=== PATIENT | male | born 1940 | race Caucasian/White ===

== ENCOUNTER → 2018-02-28 | Emergency (ER) | payer OTHER ==
[~2018-02-28] VITALS: Ht 177.8 cm; Wt 72.6 kg
[~2018-02-28] MED LIST: CATAFLAM50 MG PO; CLONAZEPAM0.5 MG PO; IOPHEN DM-100 MG/5 M PO; LEVAQUIN750 MG PO; MEDROL4 MG PO; MEDROLPACK PO; ORPH100T PO; SYMBICORT 16010.2 GM IH; TESSALON PERLE100 M1 PO; TUSSI PRES-B L120 M1 PO; TUSSIONEX PENN115 ML PO; VENTOLIN HFA18 GM; ZITHROMAX TRI-500 MG PO
== END | disposition home or self-care (01) ==
LOC: ER 05:24
DX: J44.9 Chronic obstructive pulmonary disease, unspecified (principal); J20.9 Acute bronchitis, unspecified; J11.1 Influenza due to unidentified influenza virus with other respiratory manifestations

== ENCOUNTER 2018-03-12 05:24 | Emergency (ER) | payer OTHER ==
[~2018-03-12] VITALS: Ht 180.3 cm; Wt 72.6 kg
[~2018-03-12 05:24] MED LIST changes: -TUSSI PRES-B L120 M1 PO; -TUSSIONEX PENN115 ML PO; -VENTOLIN HFA18 GM; -ZITHROMAX TRI-500 MG PO
[2018-03-12] MEDS ORDERED: VENTOLIN HFA18 GM (05:37)
[2018-03-12] MEDS ORDERED: TUSSI PRES-B L120 M1 PO (11:25)
[2018-03-12] MEDS ORDERED: ZITHROMAX TRI-500 MG PO (11:25)
[2018-03-12] MEDS ORDERED: TESSALON PERLE100 M1 PO (11:25)
== END 2018-03-12 11:41 | disposition home or self-care (01) ==
LOC: ER 05:24
DX: J44.1 Chronic obstructive pulmonary disease with (acute) exacerbation (principal); J11.1 Influenza due to unidentified influenza virus with other respiratory manifestations

== ENCOUNTER 2018-03-17 05:08 | Emergency (ER) | payer OTHER ==
[~2018-03-17] VITALS: Ht 175.3 cm; Wt 69.9 kg
[~2018-03-17 05:08] MED LIST changes: +TUSSI PRES-B L120 M1 PO; +VENTOLIN HFA18 GM; +ZITHROMAX TRI-500 MG PO
[2018-03-18] MEDS ORDERED: TUSSIONEX PENN115 ML PO (07:54)
== END 2018-03-18 08:04 | disposition home or self-care (01) ==
LOC: ER 05:08
DX: J44.1 Chronic obstructive pulmonary disease with (acute) exacerbation (principal); J41.0 Simple chronic bronchitis

== ENCOUNTER 2018-04-24 09:02 | Inpatient (IN) | payer OTHER ==
[~2018-04-24] VITALS: Ht 180.3 cm; Wt 61.7 kg
[~2018-04-24 09:02] MED LIST changes: +TUSSIONEX PENN115 ML PO
== END 2018-04-28 19:48 | disposition home or self-care (01) | DRG 191 ==
LOC: ER 09:02 → MEDI 21:18 → SEC-K 21:18 → MEDI 21:50
PROC: 4A033R1 Measurement of Arterial Saturation, Peripheral, Percutaneous Approach (ICD-10-PCS; principal; 2018-04-24)
PROC: 3E0F7GC Introduction of Other Therapeutic Substance into Respiratory Tract, Via Natural or Artificial Opening (ICD-10-PCS; 2018-04-24)
PROC: B246ZZZ Ultrasonography of Right and Left Heart (ICD-10-PCS; 2018-04-25)
PROC: 4A12X4Z Monitoring of Cardiac Electrical Activity, External Approach (ICD-10-PCS; 2018-04-25)
DX: J44.1 Chronic obstructive pulmonary disease with (acute) exacerbation (principal); E87.2 Acidosis; I47.2 Ventricular tachycardia; J20.9 Acute bronchitis, unspecified; J44.0 Chronic obstructive pulmonary disease with (acute) lower respiratory infection; R09.02 Hypoxemia; E05.80 Other thyrotoxicosis without thyrotoxic crisis or storm

== ENCOUNTER 2018-04-29 23:46 | Emergency (ER) | payer OTHER ==
[~2018-04-29] VITALS: Ht 180.3 cm; Wt 72.6 kg
== END 2018-04-30 19:38 | disposition home or self-care (01) ==
LOC: ER 23:46
DX: R55 Syncope and collapse (principal); R42 Dizziness and giddiness; R61 Generalized hyperhidrosis; R39.198 Other difficulties with micturition; J44.9 Chronic obstructive pulmonary disease, unspecified

== ENCOUNTER 2018-06-20 23:50 | Emergency (ER) | payer OTHER ==
[~2018-06-20] VITALS: Ht 180.3 cm; Wt 70.3 kg
== END 2018-06-21 03:27 | disposition home or self-care (01) ==
LOC: ER 23:50
DX: R06.02 Shortness of breath (principal); F41.8 Other specified anxiety disorders

== ENCOUNTER 2018-06-27 06:24 | Emergency (ER) | payer OTHER ==
[~2018-06-27] VITALS: Ht 175.3 cm; Wt 71.7 kg
== END 2018-06-27 12:01 | disposition home or self-care (01) ==
LOC: ER 06:24
DX: J44.9 Chronic obstructive pulmonary disease, unspecified (principal); J45.998 Other asthma

== ENCOUNTER 2018-07-03 00:28 | Emergency (ER) | payer OTHER ==
[~2018-07-03] VITALS: Ht 172.7 cm; Wt 72.6 kg
== END 2018-07-03 14:22 | disposition home or self-care (01) ==
LOC: ER 00:28
DX: J45.998 Other asthma (principal); J41.0 Simple chronic bronchitis; J11.1 Influenza due to unidentified influenza virus with other respiratory manifestations

== ENCOUNTER 2018-07-30 01:32 | Inpatient (IN) | payer OTHER ==
[~2018-07-30] VITALS: Ht 180.3 cm; Wt 72.6 kg
== END 2018-08-02 16:34 | disposition home or self-care (01) | DRG 202 ==
LOC: ER 01:32 → MEDI 12:51
PROC: 3E0F7GC Introduction of Other Therapeutic Substance into Respiratory Tract, Via Natural or Artificial Opening (ICD-10-PCS; principal; 2018-07-30)
PROC: 4A033R1 Measurement of Arterial Saturation, Peripheral, Percutaneous Approach (ICD-10-PCS; 2018-07-30)
DX: J45.41 Moderate persistent asthma with (acute) exacerbation (principal); J44.1 Chronic obstructive pulmonary disease with (acute) exacerbation; E87.2 Acidosis; R09.02 Hypoxemia

== ENCOUNTER → 2018-08-29 | Emergency (ER) | payer OTHER ==
[~2018-08-29] VITALS: Ht 180.3 cm; Wt 72.6 kg
[~2018-08-29] MED LIST changes: +ANORO ELLIPTA1 EACH IH; +DALIRESP500 MCG PO
== END | disposition home or self-care (01) ==
LOC: ER 17:10 → CPU-OBS 17:29
DX: R07.89 Other chest pain (principal); J44.9 Chronic obstructive pulmonary disease, unspecified; E87.5 Hyperkalemia

== ENCOUNTER 2018-09-27 16:27 | Inpatient (IN) | payer OTHER ==
[~2018-09-27] VITALS: Ht 177.8 cm; Wt 72.6 kg
[2018-09-27] MEDS ORDERED: PAROXETINE HCL20 MG (16:49)
[2018-09-27] MEDS ORDERED: FLUOXETINE HCL10 M1 (16:50)
[2018-09-27] MEDS ORDERED: CLONAZEPAM1 MG (16:50)
[2018-09-27] MEDS ORDERED: TRAZODONE HCL50 MG (16:50)
== END 2018-10-09 19:08 | disposition home or self-care (01) | DRG 207 ==
LOC: ER 16:27 → ICU-2 21:24 → ICU 21:24 → ICU-2 09-28 03:30 → ICU 09-28 03:46 → MEDI 10-07 19:32
PROVIDERS: ADMIT Specialist
PROC: 0BH17EZ Insertion of Endotracheal Airway into Trachea, Via Natural or Artificial Opening (ICD-10-PCS; 2018-09-27)
PROC: 5A1955Z Respiratory Ventilation, Greater than 96 Consecutive Hours (ICD-10-PCS; 2018-09-27)
PROC: 3E0F7GC Introduction of Other Therapeutic Substance into Respiratory Tract, Via Natural or Artificial Opening (ICD-10-PCS; 2018-09-27)
PROC: 4A033R1 Measurement of Arterial Saturation, Peripheral, Percutaneous Approach (ICD-10-PCS; 2018-09-27)
PROC: 4A12X4Z Monitoring of Cardiac Electrical Activity, External Approach (ICD-10-PCS; 2018-09-27)
PROC: 30233N1 Transfusion of Nonautologous Red Blood Cells into Peripheral Vein, Percutaneous Approach (ICD-10-PCS; 2018-09-30)
PROC: 0DJ08ZZ Inspection of Upper Intestinal Tract, Via Natural or Artificial Opening Endoscopic (ICD-10-PCS; principal; 2018-10-03)
DX: J44.1 Chronic obstructive pulmonary disease with (acute) exacerbation (principal); J96.01 Acute respiratory failure with hypoxia; K25.4 Chronic or unspecified gastric ulcer with hemorrhage; B37.1 Pulmonary candidiasis; E87.2 Acidosis; D50.0 Iron deficiency anemia secondary to blood loss (chronic); E87.5 Hyperkalemia; B96.89 Other specified bacterial agents as the cause of diseases classified elsewhere; B96.5 Pseudomonas (aeruginosa) (mallei) (pseudomallei) as the cause of diseases classified elsewhere

== ENCOUNTER 2018-11-23 06:05 | Emergency (ER) | payer OTHER ==
[~2018-11-23] VITALS: Ht 180.3 cm; Wt 66.2 kg
[~2018-11-23 06:05] MED LIST changes: +CLONAZEPAM1 MG; +FLUOXETINE HCL10 M1; +PAROXETINE HCL20 MG; +TRAZODONE HCL50 MG
== END 2018-11-23 15:11 | disposition home or self-care (01) ==
LOC: ER 06:05
DX: J44.1 Chronic obstructive pulmonary disease with (acute) exacerbation (principal); J11.1 Influenza due to unidentified influenza virus with other respiratory manifestations

== ENCOUNTER 2018-11-29 23:20 | Inpatient (IN) | payer OTHER ==
[~2018-11-29] VITALS: Ht 180.3 cm; Wt 65.8 kg
[2018-11-29] MEDS ORDERED: ALBUTEROL S2 MG/5 ML (23:53)
== END 2018-12-04 16:18 | disposition home or self-care (01) | DRG 190 ==
LOC: ER 23:20 → MEDI 11-30 12:40 → SEC-K 11-30 12:40 → MEDI 11-30 15:48
PROVIDERS: ADMIT Specialist
PROC: 3E0F7GC Introduction of Other Therapeutic Substance into Respiratory Tract, Via Natural or Artificial Opening (ICD-10-PCS; principal; 2018-11-30)
PROC: 4A12X4Z Monitoring of Cardiac Electrical Activity, External Approach (ICD-10-PCS; 2018-11-30)
PROC: 4A033R1 Measurement of Arterial Saturation, Peripheral, Percutaneous Approach (ICD-10-PCS; 2018-11-30)
PROC: 5A09457 Assistance with Respiratory Ventilation, 24-96 Consecutive Hours, Continuous Positive Airway Pressure (ICD-10-PCS; 2018-11-30)
DX: J44.1 Chronic obstructive pulmonary disease with (acute) exacerbation (principal); J96.01 Acute respiratory failure with hypoxia; B37.1 Pulmonary candidiasis; E87.2 Acidosis; J20.9 Acute bronchitis, unspecified; F41.8 Other specified anxiety disorders; F17.290 Nicotine dependence, other tobacco product, uncomplicated; Z99.81 Dependence on supplemental oxygen; M15.0 Primary generalized (osteo)arthritis; F32.89 Other specified depressive episodes; B96.5 Pseudomonas (aeruginosa) (mallei) (pseudomallei) as the cause of diseases classified elsewhere; B96.89 Other specified bacterial agents as the cause of diseases classified elsewhere

== ENCOUNTER 2018-12-19 02:43 | Emergency (ER) | payer OTHER ==
[~2018-12-19] VITALS: Ht 180.3 cm; Wt 65.8 kg
[~2018-12-19 02:43] MED LIST changes: +ALBUTEROL S2 MG/5 ML
== END 2018-12-19 06:41 | disposition home or self-care (01) ==
LOC: ER 02:43
DX: J44.1 Chronic obstructive pulmonary disease with (acute) exacerbation (principal)

== ENCOUNTER 2018-12-25 14:51 | Emergency (ER) | payer OTHER ==
[~2018-12-25] VITALS: Ht 167.6 cm; Wt 65.8 kg
[2018-12-25] MEDS ORDERED: VENTOLIN HFA18 GM (15:10)
[2018-12-25] MEDS ORDERED: ATROVENT HFA12.9 GM (15:10)
== END 2018-12-26 17:42 | disposition home or self-care (01) ==
LOC: ER 14:51
DX: J44.1 Chronic obstructive pulmonary disease with (acute) exacerbation (principal)

== ENCOUNTER 2019-01-13 19:14 | Inpatient (IN) | payer OTHER ==
[~2019-01-13] VITALS: Ht 177.8 cm; Wt 34.9 kg
[~2019-01-13 19:14] MED LIST changes: +ATROVENT HFA12.9 GM
== END 2019-01-19 14:47 | disposition designated cancer center or children's hospital (05) | DRG 280 ==
LOC: ER 19:14 → MEDJ 01-14 08:13
PROVIDERS: ADMIT Specialist
PROC: 5A09457 Assistance with Respiratory Ventilation, 24-96 Consecutive Hours, Continuous Positive Airway Pressure (ICD-10-PCS; principal; 2019-01-14)
PROC: 3E0F7GC Introduction of Other Therapeutic Substance into Respiratory Tract, Via Natural or Artificial Opening (ICD-10-PCS; 2019-01-14)
PROC: 4A033R1 Measurement of Arterial Saturation, Peripheral, Percutaneous Approach (ICD-10-PCS; 2019-01-14)
PROC: 4A12X4Z Monitoring of Cardiac Electrical Activity, External Approach (ICD-10-PCS; 2019-01-14)
PROC: B246ZZZ Ultrasonography of Right and Left Heart (ICD-10-PCS; 2019-01-15)
DX: I21.4 Non-ST elevation (NSTEMI) myocardial infarction (principal); J96.01 Acute respiratory failure with hypoxia; J44.1 Chronic obstructive pulmonary disease with (acute) exacerbation; E87.2 Acidosis; J44.0 Chronic obstructive pulmonary disease with (acute) lower respiratory infection; M15.0 Primary generalized (osteo)arthritis; J20.9 Acute bronchitis, unspecified; F32.89 Other specified depressive episodes; F41.8 Other specified anxiety disorders; Z99.81 Dependence on supplemental oxygen; Z91.14 Patient's other noncompliance with medication regimen; Z87.891 Personal history of nicotine dependence

== ENCOUNTER 2019-02-25 22:37 | Inpatient (IN) | payer OTHER ==
[~2019-02-25] VITALS: Ht 180.3 cm; Wt 68.0 kg
[2019-02-26] MEDS ORDERED: FAMOTIDINE20 MG PO (09:55)
[2019-02-26] MEDS ORDERED: ATORVASTATIN CA40 MG PO (09:56)
[2019-02-26] MEDS ORDERED: SIMVASTATIN20 MG PO (09:57)
[2019-02-26] MEDS ORDERED: CLONAZEPAM0.5 MG PO (09:57)
== END 2019-03-05 11:43 | disposition home or self-care (01) | DRG 208 ==
LOC: ER 22:37 → MEDJ 02-26 06:23 → SEC-K 02-26 06:23 → MEDJ 02-26 08:01 → MEDI 02-26 08:01 → MEDJ 02-26 10:39
PROVIDERS: ADMIT Internal Medicine Cardiovascular Disease
PROC: 4A033R1 Measurement of Arterial Saturation, Peripheral, Percutaneous Approach (ICD-10-PCS; principal; 2019-02-26)
PROC: 3E0F7GC Introduction of Other Therapeutic Substance into Respiratory Tract, Via Natural or Artificial Opening (ICD-10-PCS; 2019-02-26)
PROC: 5A1935Z Respiratory Ventilation, Less than 24 Consecutive Hours (ICD-10-PCS; 2019-02-27)
PROC: 0BH17EZ Insertion of Endotracheal Airway into Trachea, Via Natural or Artificial Opening (ICD-10-PCS; 2019-02-27)
DX: J44.1 Chronic obstructive pulmonary disease with (acute) exacerbation (principal); I21.4 Non-ST elevation (NSTEMI) myocardial infarction; J96.01 Acute respiratory failure with hypoxia; K27.4 Chronic or unspecified peptic ulcer, site unspecified, with hemorrhage; E87.2 Acidosis; D62 Acute posthemorrhagic anemia; F32.2 Major depressive disorder, single episode, severe without psychotic features; I47.2 Ventricular tachycardia; Z99.11 Dependence on respirator [ventilator] status; E87.5 Hyperkalemia; J20.9 Acute bronchitis, unspecified; J44.0 Chronic obstructive pulmonary disease with (acute) lower respiratory infection; F41.8 Other specified anxiety disorders; R61 Generalized hyperhidrosis; G47.34 Idiopathic sleep related nonobstructive alveolar hypoventilation; B96.89 Other specified bacterial agents as the cause of diseases classified elsewhere

== ENCOUNTER 2019-04-11 22:50 | Emergency (ER) | payer OTHER ==
[~2019-04-11] VITALS: Ht 180.3 cm; Wt 72.6 kg
[~2019-04-11 22:50] MED LIST changes: +ATORVASTATIN CA40 MG PO; +FAMOTIDINE20 MG PO; +SIMVASTATIN20 MG PO
[2019-04-11] MEDS ORDERED: TAMS0.4C (23:11)
[2019-04-11] MEDS ORDERED: XOPENEX0.63 MG/3 (23:12)
== END 2019-04-12 07:58 | disposition home or self-care (01) ==
LOC: ER 22:50
DX: J44.9 Chronic obstructive pulmonary disease, unspecified (principal)

== ENCOUNTER 2019-04-18 01:50 | Emergency (ER) | payer OTHER ==
[~2019-04-18] VITALS: Ht 175.3 cm; Wt 65.8 kg
[~2019-04-18 01:50] MED LIST changes: +TAMS0.4C; +XOPENEX0.63 MG/3
[2019-04-18] MEDS ORDERED: MEDROLPACK PO (08:26)
[2019-04-18] MEDS ORDERED: TESSALON PERLE100 M1 PO (08:26)
== END 2019-04-18 09:51 ==
LOC: ER 01:50
DX: J44.1 Chronic obstructive pulmonary disease with (acute) exacerbation (principal)

== ENCOUNTER 2019-04-18 16:43 | Inpatient (IN) | payer OTHER ==
[~2019-04-18] VITALS: Ht 180.3 cm; Wt 68.0 kg
--- NOTE | 2019-04-18 17:28 | NUR ---
SE RECIBE PTE DESDE AMBULANCIA,PTE MASCULINO DE 78 YRS,PTE ALERTA X 3, CON DIFICULTDAD AL RESPIRAR, SE ACOMODA EN AMAYA CPU # 17 Y SE CONECTA A MONITOR CARDIACO,DR MCHUGH EVALUA Y ORDENA IVF'S CON MEDICAMENTOS, BPAP Y TERAPIA RESPIRATORIA.
--- NOTE | 2019-04-18 17:41 | NUR ---
DR MCHUGH ORDENA PARAMETROS DE BPAP: EPAP:14, IPAP:5,RR:14 O2:100%
--- NOTE | 2019-04-18 18:01 | NUR ---
SE LE REPITE CMP YA QUE LABORATORIO NOTIFICO MUESTRA HEMOLIZADA.
== END 2019-04-24 13:17 | disposition home or self-care (01) | DRG 208 ==
LOC: ER 16:43 → SURH 20:20
PROVIDERS: ADMIT Internal Medicine Cardiovascular Disease
PROC: 0BH17EZ Insertion of Endotracheal Airway into Trachea, Via Natural or Artificial Opening (ICD-10-PCS; principal; 2019-04-18)
PROC: 5A1945Z Respiratory Ventilation, 24-96 Consecutive Hours (ICD-10-PCS; 2019-04-18)
PROC: 4A033R1 Measurement of Arterial Saturation, Peripheral, Percutaneous Approach (ICD-10-PCS; 2019-04-18)
PROC: 3E0F7GC Introduction of Other Therapeutic Substance into Respiratory Tract, Via Natural or Artificial Opening (ICD-10-PCS; 2019-04-18)
PROC: 4A12X4Z Monitoring of Cardiac Electrical Activity, External Approach (ICD-10-PCS; 2019-04-18)
DX: J96.01 Acute respiratory failure with hypoxia (principal); I21.4 Non-ST elevation (NSTEMI) myocardial infarction; J44.1 Chronic obstructive pulmonary disease with (acute) exacerbation; E87.2 Acidosis; I47.2 Ventricular tachycardia; J45.901 Unspecified asthma with (acute) exacerbation; F32.2 Major depressive disorder, single episode, severe without psychotic features; G47.34 Idiopathic sleep related nonobstructive alveolar hypoventilation; R61 Generalized hyperhidrosis; E87.5 Hyperkalemia; D50.0 Iron deficiency anemia secondary to blood loss (chronic); F39 Unspecified mood [affective] disorder

== ENCOUNTER 2019-06-11 00:26 | Emergency (ER) | payer OTHER ==
[~2019-06-11] VITALS: Ht 177.8 cm; Wt 72.6 kg
[2019-06-11] MEDS ORDERED: TUSSIN DM LIQU118 ML PO (07:54)
== END 2019-06-11 08:57 | disposition home or self-care (01) ==
LOC: ER 00:26
DX: J44.9 Chronic obstructive pulmonary disease, unspecified (principal)

== ENCOUNTER 2019-06-27 09:38 | Emergency (ER) | payer OTHER ==
[~2019-06-27] VITALS: Ht 180.3 cm; Wt 72.6 kg
[~2019-06-27 09:38] MED LIST changes: +TUSSIN DM LIQU118 ML PO
== END 2019-06-27 14:19 | disposition home or self-care (01) ==
LOC: ER 09:38
DX: J44.9 Chronic obstructive pulmonary disease, unspecified (principal)

== ENCOUNTER 2019-07-04 01:56 | Emergency (ER) | payer OTHER ==
[~2019-07-04] VITALS: Ht 180.3 cm; Wt 72.6 kg
[2019-07-04] MEDS ORDERED: ANORO ELLIPTA1 EACH (02:07)
[2019-07-04] MEDS ORDERED: XOPENEX CO1.25 MG/0. IH (12:19)
[2019-07-04] MEDS ORDERED: BUDESONIDE0.5 MG/2 M IH (12:19)
== END 2019-07-04 12:35 | disposition home or self-care (01) ==
LOC: ER 01:56
DX: J44.1 Chronic obstructive pulmonary disease with (acute) exacerbation (principal)

== ENCOUNTER 2019-07-11 00:49 | Emergency (ER) | payer OTHER ==
[~2019-07-11] VITALS: Ht 180.3 cm; Wt 65.3 kg
[~2019-07-11 00:49] MED LIST changes: +ANORO ELLIPTA1 EACH; +BUDESONIDE0.5 MG/2 M IH; +XOPENEX CO1.25 MG/0. IH
[2019-07-11] MEDS ORDERED: CLONAZEPAM2 MG PO (07:47)
== END 2019-07-11 08:04 | disposition home or self-care (01) ==
LOC: ER 00:49
DX: J44.1 Chronic obstructive pulmonary disease with (acute) exacerbation (principal)

== ENCOUNTER 2019-08-14 23:12 | Emergency (ER) | payer OTHER ==
[~2019-08-14] VITALS: Ht 177.8 cm; Wt 72.6 kg
[~2019-08-14 23:12] MED LIST changes: +CLONAZEPAM2 MG PO
[2019-08-14] MEDS ORDERED: CLONAZEPAM2 M1 (23:27)
== END 2019-08-15 08:55 | disposition home or self-care (01) ==
LOC: ER 23:12
DX: J44.9 Chronic obstructive pulmonary disease, unspecified (principal)

== ENCOUNTER → 2019-08-21 | Emergency (ER) | payer OTHER ==
[~2019-08-21] VITALS: Ht 172.7 cm; Wt 72.6 kg
[~2019-08-21] MED LIST changes: +CLONAZEPAM2 M1
== END | disposition left against medical advice (07) ==
LOC: ER 06:23
DX: J44.1 Chronic obstructive pulmonary disease with (acute) exacerbation (principal); R09.02 Hypoxemia; R06.82 Tachypnea, not elsewhere classified

== ENCOUNTER 2019-09-05 22:15 | Emergency (ER) | payer OTHER ==
[~2019-09-05] VITALS: Ht 180.3 cm; Wt 70.8 kg
== END 2019-09-06 08:06 | disposition home or self-care (01) ==
LOC: ER 22:15
DX: J44.9 Chronic obstructive pulmonary disease, unspecified (principal); R06.02 Shortness of breath

== ENCOUNTER 2019-09-14 13:08 | Emergency (ER) | payer OTHER ==
[~2019-09-14] VITALS: Ht 180.3 cm; Wt 84.4 kg
== END 2019-09-14 20:25 | disposition home or self-care (01) ==
LOC: ER 13:08
DX: J44.1 Chronic obstructive pulmonary disease with (acute) exacerbation (principal)

== ENCOUNTER 2019-10-07 07:29 | Emergency (ER) | payer OTHER ==
[~2019-10-07] VITALS: Ht 182.9 cm; Wt 71.7 kg
== END 2019-10-07 13:40 | disposition home or self-care (01) ==
LOC: ER 07:29
DX: J45.998 Other asthma (principal)

== ENCOUNTER 2019-12-14 07:48 | Inpatient (IN) | payer OTHER ==
[~2019-12-14] VITALS: Ht 177.8 cm; Wt 68.0 kg
[2019-12-14] MEDS ORDERED: CLONAZEPAM0.5 MG (08:19)
[2019-12-14] MEDS ORDERED: ELIQUIS5 MG (16:40)
[2019-12-14] MEDS ORDERED: ANORO ELLIPTA1 EACH (16:40)
[2019-12-14] MEDS ORDERED: PROAIR HFA8.5 GM (16:40)
[2019-12-14] MEDS ORDERED: FLECAINIDE ACE100 MG (16:41)
[2019-12-14] MEDS ORDERED: DILTIAZEM ER120 M2 (16:41)
== END 2019-12-18 13:28 | disposition home or self-care (01) | DRG 389 ==
LOC: ER 07:48 → SURH 13:12
PROVIDERS: ADMIT Surgery
PROC: BW21ZZZ Computerized Tomography (CT Scan) of Abdomen and Pelvis (ICD-10-PCS; principal; 2019-12-14)
PROC: 3E0F7GC Introduction of Other Therapeutic Substance into Respiratory Tract, Via Natural or Artificial Opening (ICD-10-PCS; 2019-12-14)
PROC: 4A033R1 Measurement of Arterial Saturation, Peripheral, Percutaneous Approach (ICD-10-PCS; 2019-12-14)
DX: K56.690 Other partial intestinal obstruction (principal); J44.1 Chronic obstructive pulmonary disease with (acute) exacerbation

== ENCOUNTER 2020-02-04 23:04 | Inpatient (IN) | payer OTHER ==
[~2020-02-04] VITALS: Ht 180.3 cm; Wt 72.6 kg
[~2020-02-04 23:04] MED LIST changes: +CLONAZEPAM0.5 MG; +DILTIAZEM ER120 M2; +ELIQUIS5 MG; +FLECAINIDE ACE100 MG; +PROAIR HFA8.5 GM
== END 2020-02-14 13:47 | disposition home or self-care (01) | DRG 208 ==
LOC: ER 23:04 → ICU-2 02-05 06:45 → ICU 02-05 06:45 → SURH 02-10 10:48
PROVIDERS: ADMIT Internal Medicine Cardiovascular Disease
PROC: 8E0ZXY6 Isolation (ICD-10-PCS; 2020-02-05)
PROC: 0BH17EZ Insertion of Endotracheal Airway into Trachea, Via Natural or Artificial Opening (ICD-10-PCS; principal; 2020-02-06)
PROC: 5A1945Z Respiratory Ventilation, 24-96 Consecutive Hours (ICD-10-PCS; 2020-02-06)
PROC: 4A033R1 Measurement of Arterial Saturation, Peripheral, Percutaneous Approach (ICD-10-PCS; 2020-02-06)
PROC: 02HV33Z Insertion of Infusion Device into Superior Vena Cava, Percutaneous Approach (ICD-10-PCS; 2020-02-08)
DX: J44.1 Chronic obstructive pulmonary disease with (acute) exacerbation (principal); J96.01 Acute respiratory failure with hypoxia; E87.2 Acidosis; B96.5 Pseudomonas (aeruginosa) (mallei) (pseudomallei) as the cause of diseases classified elsewhere; I10 Essential (primary) hypertension; F41.9 Anxiety disorder, unspecified; Z91.14 Patient's other noncompliance with medication regimen; Z99.81 Dependence on supplemental oxygen; Z87.891 Personal history of nicotine dependence